=== PATIENT | male | born 1970 | race Caucasian/White ===

== ENCOUNTER → 2019-07-23 | Outpatient (CLI) | payer MEDICARE, SELFPAY | PROVIDERS: Family Provider Nurse Practitioner Family; Visit Provider Internal Medicine Medical Oncology | DX: D80.0 Hereditary hypogammaglobulinemia (principal); I50.9 Heart failure, unspecified; M19.90 Unspecified osteoarthritis, unspecified site; K21.9 Gastro-esophageal reflux disease without esophagitis; Z79.82 Long term (current) use of aspirin; Z86.79 Personal history of other diseases of the circulatory system; Z86.010 Personal history of colon polyps | CPT/HCPCS: 99214 ==

== ENCOUNTER → 2020-06-06 11:06 | Outpatient (BNVA) | payer MEDICARE, SELFPAY | PROVIDERS: Family Provider Nurse Practitioner Family; PCP Nurse Practitioner Family; Visit Provider Internal Medicine Cardiovascular Disease | DX: Z20.828 Contact with and (suspected) exposure to other viral communicable diseases (principal); Z01.818 Encounter for other preprocedural examination; Z95.0 Presence of cardiac pacemaker; Z95.818 Presence of other cardiac implants and grafts | CPT/HCPCS: 80048; 85025; 85610; 87635 ==

== ENCOUNTER → 2020-06-13 09:56 | Day surgery (SDC) | payer MEDICARE, SELFPAY ==
--- NOTE | 2020-06-12 09:10 | PC.NURSE ---
pat note anesthesia called to verify request for sedation during procedure. they agreed to be here at 1100 on 06/13/20
[2020-06-13 10:34] VITALS: BP 124/73; PULSE 64; RESP 17; TEMP 36.6; O2SAT 99; BMI 23.5
[2020-06-13] MEDS: cephALEXin 500 mg Capsule 2000 MG PO (11:11)
--- NOTE | 2020-06-13 11:22 | ANES.PREANE2 ---
Pre-Anesthetic Assessment Pre-Anesthetic Assessment: Height/Weight: Height 1.7 m Weight 68.039 kg Temp Pulse Resp BP Pulse Ox 97.9 F 64 17 124/73 99 06/13/20 10:34 06/13/20 10:34 06/13/20 10:34 06/13/20 10:34 06/13/20 10:34 Preop Diagnosis: retained Loop Recorder Proposed Procedure: recorder Operation Date: 06/13/20 11:30 Proposed Procedures p Loop Recorder Removal(Not Applicable) - Luis Petersen MD Last Intake: 00:00 Social: Social History: Alcohol and Tobacco Exam: Pre-Anes Outpt Exam: alert, oriented x 3, clear to auscultation bilaterally and regular rate & rhythm Airway: Submandibular: WNL Cervical ROM: WNL MP: 2 Dentition: False History/ROS: No significant history except as noted and No significant complaints Pulmonary: Pulmonary: None reported CV/HEM: CV/HEM: Arrythmia and HTN Comments: paroxismal AFib aand SVT Has pacemaker : : None reported Hepatic: Hepatic: None reported GI: GI: None reported Metabolic: Metabolic: None reported Comments: Immunodeficiency Musc/skel: Musc/skel: None reported Neuropsych: Neuropsych: None reported Anesthetic Plan: ASA status: 2 Anesthesia: Anesthesia Evaluation and MAC Other: MAC Risk of > 500 ml blood loss (7ml/kg in children): No PFSH Anesthesia PFSH: Medical History Atypical chest pain History of deviated nasal septum History of sleep disorder Hx of cardiac pacemaker Hx of chest pain Hx of colonic polyp Hx of hiatal hernia Intermittent atrial fibrillation Status post placement of implantable loop recorder TIA (transient ischemic attack) Surgical History History of inguinal hernia repair, bilateral History of tonsillectomy and adenoidectomy Hx of colonoscopy Hx of hand surgery Social History Smoking and tobacco status: current some day smoker Alcohol intake: current Alcohol intake frequency: few times a month Data Anesthesia Cardiac Studies: No Data to Display
--- NOTE | 2020-06-13 11:42 | W.PM.OPSUD ---
Surgery/Procedure H&P Update DATE OF PROCEDURE: June 13, 2020 DATE H&P PERFORMED: 05/21/20 H&P UPDATE INFORMATION: I have reviewed H&P completed within last 30 days, I have examined patient prior to procedure and No changes to prior documentation PREOP DIAGNOSIS: retained Loop Recorder PLANNED PROCEDURE: Operation Date: 06/13/20 11:30 Proposed Procedures p Loop Recorder Removal(Not Applicable) - Luis Petersen MD
--- NOTE | 2020-06-13 12:14 | P.OP_ITS ---
Operative Report Date of procedure: June 13, 2020 Pre-op Diagnosis: retained Loop Recorder Procedure: LOCATION: Cardiac Catheterization Laboratory REFERRING PROVIDER: [] PREOPERATIVE DIAGNOSIS: Recurrent syncope. POSTOPERATIVE DIAGNOSIS: same ESTIMATED BLOOD LOSS: None COMPLICATIONS: None. BRIEF HISTORY: This is a 49-year-old white [male] with a history of recurrent [syncope], had an ICM placement on more than 3 years ago in an outside facility. This patient had symptomatic bradycardia for which she underwent pacemaker insertion. Device has reached end-of-life. Patient has a history of IgG deficiency and problems with the local anesthesia. He initially decided to leave the ICM alone. Then he changed his mind and decided to have it explanted. PROCEDURE: The procedure was explained to the patient in detail with the risks and benefits. The patient understood this well and consented to proceed. The patient was brought to the Cardiac Management Trainer. The left side of the neck and the precordial region were cleaned and draped in a sterile fashion. 1% Xylocaine was used as local anesthetic agent. Patient was given [2 gm of Keflex] by mouth, half an hour prior to the procedure A 1/2 inch long incision was made at the previous implantation scar. By sharp and blunt dissection, the corporate associate pocket was accessed. The device was delivered from the pocket. Complete hemostasis was achieved. The pocket was copiously irrigated with vancomycin solution. Plate hemostasis was achieved . The pocket was closed in layers. The skin was approximated with 4-0 Vicryl EXPLANTED DEVICE: Reveal XT Model number: [id number] Serial number: [id number] Make: [employer] Pressure dressing was applied over the insertion site. The patient was transferred to the medical floor in stable condition.
--- NOTE | 2020-06-13 12:15 | PC.NURSE ---
pt recovery received pt from label stamper. pt has pressure dressing on left chest. no swelling, bruising, or bleeding apparent. pt sleepy from anaesthesia but aware of situation. pt complains of no pain. pt hooked up to monitor for vitals monitoring and will do so til discharge.
[2020-06-13 12:28] VITALS: BP 114/68; PULSE 74; RESP 20; O2SAT 96
[2020-06-13 12:45] VITALS: BP 105/69; PULSE 66; RESP 18; O2SAT 99
[2020-06-13 13:00] VITALS: BP 113/78; PULSE 60; RESP 17; O2SAT 99
[2020-06-13 13:15] VITALS: BP 107/76; PULSE 60; RESP 17; O2SAT 99
[2020-06-13 13:36] VITALS: BP 109/79; PULSE 60; RESP 16; O2SAT 99
== END | disposition home or self-care (01) ==
PROVIDERS: PCP Nurse Practitioner Family; Visit Provider Internal Medicine Cardiovascular Disease
PROC: (CPT 33286; principal; 2020-06-13 11:30)
DX: Z45.09 Encounter for adjustment and management of other cardiac device (principal)
CPT/HCPCS: 12345; 33286; 36415; C1769; J2704; J7030; J7050

== ENCOUNTER 2021-06-01 08:28 | Outpatient (CLI) | payer MEDICARE, SELFPAY ==
--- NOTE | 2021-06-01 08:38 | ECG_ITS ---
[facility] Test Date: 2021-06-01 Pat Name: Anish Rogers Department: Room: Gender: Male Epic Cupid Analyst: : 1970 Requested By: Luis Petersen Order Number: [id number] Abram MD: Luis Petersen M.D. Interpretive Statements NAME OF STUDY: EXERCISE SESTAMIBI STRESS TEST INDICATION: Chest Pain, PROCEDURE: The baseline electrocardiogram showed [normal sinus rhythm with early repolarization changes. At the baseline, the patient's blood pressure was 135/82 mm Hg with a heart rate of 68. The patient exercised for 11 minutes and 1 seconds on a standard [place] protocol. Patient attained a maximum heart rate of 163 beats per minute(95% of the maximum predicted heart rate) with a blood pressure at the peak exercise of 182/73 mm Hg. The EKG at the peak exercise revealed no significant changes. Patient did not have any chest pain or any significant arrhythmis with the exercise Sestamibi was injected 1 minute prior to the peak exercise During the recovery phase, there were no new changes. Blood pressure at the end of the recovery phase was 139/74 mm Hg with a heart rate of 100 per minute. CONCLUSION: 1. No significant EKG changes with the treadmill exercise 2. No exercise-induced chest pain or cardiac arrhythmia 3. Good exercise tolerance, attained a maximum of 13.5 METs 4. Sestamibi/Sestamibi perfusion results pending; see separate report. Electronically Signed On 06-01-2021 19:57:32 PEA VINER MECHANIC by Luis Petersen M.D. [email or web address]
--- NOTE | 2021-06-01 08:38 | NMCV_ITS ---
NM eliana perf SPECT r/s* [id number] Anish Rogers Age: 50 Gender: M : 1970 Exam Date: 06/01/2021 08:38 Ordering Phys: Luis Petersen MD ([email or web address]) Technologist: CHAPARRO Rossi Exam Location: [facility] Indications: CHEST PAIN STRESS TEST Please see separate stress test report in [facility] for full findings IMAGE PROTOCOL Rest/Stress 1 Exercise Day Radiopharmaceutical Dose (mCi) Administration Site Administered by Rest: Tc-99m 10.5 IV CHAPARRO Rossi Sestamibi Stress:Tc-99m 32.7 IV CHAPARRO Dsouza Sestamibi Rest: 01-Jun-2021 60 Discovery 630 Stress: 01-Jun-2021 30 Discovery 630 Radiopharmaceutical was injected at 85 % maximum heart rate. Images obtained in supine and prone position. SPECT RESULTS Technical Quality: Excellent Raw Data Analysis: Normal Image Corrections: No attenuation or motion correction applied Summed Stress Score: 0 Summed Rest Score: 0 Summed Difference Score: 0 PERFUSION FINDINGS Fairly uniform myocardial tracer uptake. No significant perfusion abnormalities FUNCTIONAL RESULTS (calculated via Gated SPECT) Stress Image LV EF (%): 58 Stress EDV (mL):100 TID: 0.9 Stress ESV (mL):42 FUNCTIONAL FINDINGS: Segmental wall motion analysis revealing no gross wall motion abnormalities IMPRESSIONS 1. Myocardial perfusion imaging revealing fairly uniform myocardial tracer uptake with no significant perfusion abnormalities 2. Normal LV ejection fraction 58%. 3. LV wall motion analysis revealing no gross wall motion normalities. 4. Normal LV volume. No significant coronary ischemia, based on the above findings Dr Luis Petersen MD FACC (Electronically Signed) Final Date: 02 June 2021 07:24 S
--- NOTE | 2021-06-01 08:53 | PC.NURSE ---
Labs drawn and sent to lab per Dr. Quesada's orders.
[2021-06-01 08:54] VITALS: BMI 22.1
[2021-06-01 10:34] LABS: Basophils # 0.1 10^3/uL (0.0-0.1); Basophils % 0.8 %; Eosinophils # 0.2 10^3/uL (0.0-0.8); Eosinophils % 2.8 %; Hematocrit 45.3 % (42.0-52.0); Hemoglobin 15.5 g/dL (11.7-16.6); Lymphocytes # 2.2 10^3/uL (0.8-4.8); Lymphocytes % 29.5 %; Mean Corpuscular HGB Conc 34.2 g/dL (30.0-36.0); Mean Corpuscular Hemoglobin 31.8 pg (28.0-34.0); Mean Platelet Volume 11.6 fL (7.4-10.4); Monocytes # 0.7 10^3/uL (0.2-0.9); Monocytes % 9.4 %; Neutrophils # 4.32 10^3/uL (1.8-7.7); Neutrophils % 57.1 %; Nucleated Red Blood Cells % 0 %; Platelet Count 186 10^3/cmm (130-400); Red Blood Count 4.87 10^6/uL (4.1-5.3); Red Cell Distribution Width 12.2 % (12.1-15.1); White Blood Count 7.6 10^3/uL (4.0-10.0)
[2021-06-01 10:52] LABS: Alanine Aminotransferase 25 U/L (0-41); Alkaline Phosphatase 61 IU/L (40-130); Anion Gap 12.1 (5-19); Aspartate Amino Transferase 19 U/L (0-40); Blood Urea Nitrogen 9 mg/dL (6-20); Calcium 8.9 mg/dL (8.5-10.5); Carbon Dioxide 25 mmol/L (22-29); Chloride 105 mmol/L (98-107); Globulin 2.4 g/dL (1.3-4.6); Glomerular Filtration Rate 143.8 mL/min (90-130); Glucose 85 mg/dL (65-115); Immunoglobulin IGA 85 mg/dL (70-400); Immunoglobulin IGG 698 mg/dL (700-1600); Immunoglobulin IGM 111 mg/dL (40-230); Osmolality Calculated 284 mOsm/kg (285-295); Potassium 4.1 mmol/L (3.5-5.1); Sodium 138 mmol/L (136-145); Total Bilirubin 0.3 mg/dL (0.15-1.2); Total Protein 6.4 g/dL (6.6-8.7)
[2021-06-01 11:53] VITALS: BP 169/74; PULSE 99
== END 2021-06-01 08:29 | disposition home or self-care (01) ==
LOC: RAD 08:31 → CDL 08:38
PROVIDERS: Internal Medicine Medical Oncology; PCP Nurse Practitioner Family; Visit Provider Internal Medicine Cardiovascular Disease
DX: R07.9 Chest pain, unspecified (principal)
CPT/HCPCS: 78452; 80053; 82784; 85025; 93017; A9500

== ENCOUNTER 2021-06-01 12:37 | Outpatient (CLI) | payer MEDICARE, SELFPAY ==
--- NOTE | 2021-06-01 19:15 | ONC FU_ITS ---
Dr. Quesada Patient Follow-Up Note Patient: Anish Rogers Unit #: [id number]: 1970 Dicatated By: Butch Quesada M.D.Date of Visit:Jun 01, 2021 Onc Med Follow-up/Prog Note Chief Complaint: Hypogammaglobulinemia. 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 He had a history of lifelong infections and in 2010 he was determined to have hypogammaglobulinemia. It was apparently discovered in association with an episode of meningitis. Given his history, the hypogammaglobulinemia was presumed to have been congenital. He moved to this area in January 2018. He had been on long-term replacement IVIG. It was initially administered every 6 weeks, later increased to every 4 weeks and then to every 3 weeks. I had seen him initially on 07/04/2018. His CBC that time showed normal hemoglobin of 15.7 g with white blood cell count 7600 and platelet count 187,000. His comprehensive metabolic profile was unremarkable. LDH was normal at 176 U/L. Protein electrophoresis showed a normal pattern. His quantitative immunoglobulin levels were in normal range with IgG 762 mg/dL, IgA 132 mg/dL, and IgM 133 mg/dL. He was given the option to continue a trial period off of his replacement IVIG, but he preferred to continue the treatment every 3 weeks. It was administered as an outpatient at [facility] in [place]. He has additional history of cardiac arrhythmia, for which he underwent placement of permanent pacemaker in 2016. He also reports having had congestive heart failure. He has followed with Dr. Petersen for his cardiology care. He also has degenerative arthritis. He has a history of colonic polyps, and he apparently has had GERD. He has a history of smoking, but only about a pack of cigarettes every 3 days. I had last seen him for a follow-up visit in June 2019. At that point he indicated that he had experienced an allergic type reaction to the IVIG on one occasion, but it had been adequately managed with Benadryl. He had multiple complaints, which included some weight loss. He continued his replacement IVIG at the same dosage and schedule. He failed to return for follow-up. I had recently received a call from the [facility], as he had again experienced a significant allergic type reaction to his IVIG. He says that the reaction started when he was about 10 to 15 minutes into the infusion. His symptoms included nausea, dizziness, and chest pain. It was able to be managed adequately with medication, he was discharged home. He is seen now for a follow-up visit. He has not been feeling good generally. He says his energy is on and off. ECOG score is 1. His appetite is down, and he has early satiety. He has had a further 10 pound weight loss since his visit in June 2019. He does not have fever, but he does report having bad sweating every night. He has sinus congestion and he also complains of having sore mouth and sore throat. His breathing has been pretty good. He has just a little cough. He has nausea and he has a little bit of acid reflux. He has been having pain in his upper abdominal area. Recently he has been having red blood in the stool 2-3 times a day. He has a history of colonic polyps. He occasionally has burning with urination. He has fairly generalized joint pain, clean the hands, knees, and ankles. He also has back pain. He does not complain of headache. He sometimes has dizziness. He has numbness in his hands quite often and occasionally in his feet. He has been having quite a bit of stress. Medications: Aspirin 1 Tablet (of 81 mg) Oral daily, Magnesium 1 Tablet (of 250 mg) Oral daily, Metoprolol Tartrate 1 Tablet (of 25 mg) Oral b.i.d., Nitroglycerin Tablet, sublingual Sublingual PRN Allergies: Ibuprofen and Prevpac. Vital Signs: Performed on Jun 01, 2021 13:05 Height - 67.00 in Weight - 142.9 lbs (LOW) BSA - 1.75 sq.m BMI - 22.38 Temperature - 98.0 F (LOW) Pulse - 83 /min Respiration - 18 /min BP - 108/70 mm(hg) O2 Sat - 96 % Pain - 2 Fatigue - 0 Physical Examination: Constitutional - He looks pretty good generally, Eyes - Sclerae nonicteric. Conjunctivae clear, ENMT - No lesions noted in the oral cavity, Hematologic/Lymphatic - No cervical, clavicular, or axillary adenopathy, Respiratory - Lungs sound clear with diminished air movement bilaterally, Cardiovascular - Heart rhythm is regular. There is no murmur, gallop, or rub noted, Abdomen - Soft. Liver and spleen are not enlarged. There is no abdominal mass or ascites noted and there is no inguinal adenopathy, Extremities - No edema, Neurologic - No focal neurologic deficits noted. Lab/Imaging: CBC shows hemoglobin of 15.5 g, white blood cell count 7600, and platelet count 186,000. Comprehensive metabolic profile shows normal renal function with BUN 9 and creatinine 0.6 mg/dL. Bilirubin and liver enzymes are normal. His quantitative immunoglobulin levels include slightly low IgG at 698 mg/dL, IgA in the low normal range at 85 mg/dL, and IgM in the normal range at 111 mg/dL. Problem List: 1. Hypogammaglobulinemia, presumed congenital. Historically he had been prone to recurrent infections, but he had responded well to replacement IVIG. 2. History of cardiac arrhythmia. 3. He reportedly has had congestive heart failure. 4. Degenerative arthritis. 5. History of colonic polyps. 6. GERD. 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 Historically he had been prone to recurrent infections, but he had responded well to replacement IVIG. Following his initial visit here in June 2018 he continued his IVIG infusions. He had mostly tolerated it well, but recently he has had his second episode of a hypersensitivity type reaction. In addition, during his follow-up there has been some decline in his performance status, and he has had significant weight loss, now in the range of 20 pounds. The cause is uncertain. I do have concerns about the possibility of underlying malignancy, as he has not had any overt illnesses of bacterial infection with the replacement IVIG. As such, he will be scheduled for CT scans of the chest, abdomen, and pelvis. He will have further evaluation as indicated. At a minimum, he will need additional GI evaluation for the rectal bleeding. In the meantime, I am going to look into the possibility of changing his replacement IVIG to home subcutaneous infusion, which should have a lower risk of hypersensitivity reaction. Signed By: Butch Quesada M.D. <<Signature on File>>
[2021-06-01 22:40] LABS: C Reactive Protein 0.5 mg/L (0.0-4.9)
== END 2021-06-01 12:38 | disposition home or self-care (01) ==
LOC: ONCMED 12:39
PROVIDERS: PCP Nurse Practitioner Family; Visit Provider Internal Medicine Medical Oncology
DX: D80.0 Hereditary hypogammaglobulinemia (principal); I49.9 Cardiac arrhythmia, unspecified; I50.9 Heart failure, unspecified; M19.90 Unspecified osteoarthritis, unspecified site; K21.9 Gastro-esophageal reflux disease without esophagitis; Z86.010 Personal history of colon polyps; Z79.899 Other long term (current) drug therapy
CPT/HCPCS: 86140; 99214

== ENCOUNTER 2021-06-10 12:51 | Outpatient (CLI) | payer MEDICARE, SELFPAY ==
--- NOTE | 2021-06-10 | CT_ITS ---
WS: [id number] CT CHEST, ABDOMEN AND PELVIS WITH CONTRAST. HISTORY: HEREDITARY HYPOGAMMAGLOBULINEMIA TECHNIQUE: Contiguous 5 mm axial imaging performed through the chest, abdomen and pelvis with IV cont rast, oral contrast has been provided. Coronal and sagittal reformats chest. Coronal and sagittal ref ormats through the abdomen and pelvis. All CT scans at [facility] use at least one of these d ose optimization techniques: automated exposure control; mA and/or kV adjustment per patient size (in cludes targeted exams where dose is matched to clinical indication); or iterative reconstruction. CONTRAST: Omnipaque 300; 95 mL IV. DLP: 1812.88 mGycm COMPARISON: 07/12/[address]: Lungs are clear. No pneumonia or nodules. Normal size heart. No pericardial or pleural effu sions. No mediastinal or hilar adenopathy. Dual lead LEFT subclavian pacer is present. Small hiatal h ernia. Normal size aorta. Normal pulmonary artery. Abdomen CT: Normal liver. Normal portal vein. Normal gallbladder and pancreas and spleen. No adrenal mass. Both kidneys are enhancing normally with no obstruction. Mild atherosclerosis aorta. No ascites or adenopathy. Moderate fecal retention in the RIGHT colon. No GI tract obstruction. The appendix is normal. Pelvic CT: No free fluid in the pelvis. Urinary bladder is well distended. No osteoblastic or osteolytic bone disease. Mild LEFT curvature lower lumbar spine. CT/CT chest abd pel w con* IMPRESSION: 1. No acute chest, abdomen or pelvic abnormalities. 2. Normal size spleen. 3. No adenopathy.
[2021-06-10] MEDS: iohexol 300 mg/mL 100 mL Btl IV (14:36)
[2021-06-10] MEDS: iohexol 300 mg/mL 50 mL Btl PO (14:38)
== END 2021-06-10 12:52 | disposition home or self-care (01) ==
PROVIDERS: PCP Nurse Practitioner Family; Visit Provider Internal Medicine Medical Oncology
DX: D80.0 Hereditary hypogammaglobulinemia (principal)
CPT/HCPCS: 71260; 74177; Q9967

== ENCOUNTER → 2022-04-30 10:11 | Outpatient (BNVA) | payer MEDICARE, SELFPAY | PROVIDERS: PCP Nurse Practitioner Family; Visit Provider Internal Medicine | DX: Z45.010 Encounter for checking and testing of cardiac pacemaker pulse generator [battery] (principal) | CPT/HCPCS: 93280 ==

== ENCOUNTER → 2022-05-24 10:39 | Outpatient (BNVA) | payer MEDICARE, SELFPAY | PROVIDERS: PCP Nurse Practitioner Family; Visit Provider Internal Medicine Cardiovascular Disease | DX: R07.89 Other chest pain (principal); Z95.0 Presence of cardiac pacemaker; Z86.73 Personal history of transient ischemic attack (TIA), and cerebral infarction without residual deficits; F17.200 Nicotine dependence, unspecified, uncomplicated; I25.2 Old myocardial infarction; I48.91 Unspecified atrial fibrillation | CPT/HCPCS: 99213 ==

== ENCOUNTER 2022-06-24 12:28 | Oncology outpatient (recurring) (ONCR) | payer MEDICARE, SELFPAY ==
[2022-06-24 12:48] LABS: Basophils # 0.1 10^3/uL (0.0-0.1); Basophils % 0.6 %; Eosinophils # 0.2 10^3/uL (0.0-0.8); Eosinophils % 2.9 %; Hematocrit 48.3 % (42.0-52.0); Hemoglobin 16.2 g/dL (11.7-16.6); Lymphocytes # 2.9 10^3/uL (0.8-4.8); Lymphocytes % 34.3 %; Mean Corpuscular HGB Conc 33.5 g/dL (30.0-36.0); Mean Corpuscular Hemoglobin 30.9 pg (28.0-34.0); Mean Corpuscular Volume 92.2 fl (80-94); Monocytes # 0.6 10^3/uL (0.2-0.9); Monocytes % 7.4 %; Neutrophils # 4.54 10^3/uL (1.8-7.7); Neutrophils % 54.4 %; Nucleated Red Blood Cells % 0 %; Platelet Count 193 10^3/cmm (130-400); Red Blood Count 5.24 10^6/uL (4.1-5.3); Red Cell Distribution Width 11.1 % (12.1-15.1); White Blood Count 8.3 10^3/uL (4.0-10.0)
[2022-06-24 13:08] LABS: Alanine Aminotransferase 20 U/L (0-41); Albumin Level 4.3 g/dL (3.5-5.2); Alkaline Phosphatase 82 U/L (40-130); Aspartate Amino Transferase 17 U/L (0-40); Blood Urea Nitrogen 11 mg/dL (6-20); Calcium 9.4 mg/dL (8.5-10.5); Carbon Dioxide 26 mmol/L (22-29); Chloride 103 mmol/L (98-107); Globulin 2.4 g/dL (1.3-4.6); Glomerular Filtration Rate 89.7 mL/min (90-130); Glucose 85 mg/dL (65-115); Immunoglobulin IGA 124 mg/dL (70-400); Immunoglobulin IGG 743 mg/dL (700-1600); Immunoglobulin IGM 157 mg/dL (40-230); Osmolality Calculated 285 mOsm/kg (285-295); Sodium 138 mmol/L (136-145); Total Bilirubin 0.4 mg/dL (0.15-1.2); Total Protein 6.7 g/dL (6.6-8.7)
== END 2022-07-24 23:59 | disposition home or self-care (01) ==
PROVIDERS: Visit Provider Internal Medicine Medical Oncology
DX: D80.1 Nonfamilial hypogammaglobulinemia (principal)
CPT/HCPCS: 36415; 80053; 82784; 85025

== ENCOUNTER 2023-01-19 10:30 | Oncology outpatient (recurring) (ONCR) | payer MEDICARE, SELFPAY ==
[2023-01-14 11:09] VITALS: BP 123/76; PULSE 80; RESP 18; TEMP 36.6; O2SAT 100
[2023-01-14 11:39] LABS: Immunoglobulin IGA 98 mg/dL (70-400); Immunoglobulin IGG 631 mg/dL (700-1600); Immunoglobulin IGM 162 mg/dL (40-230)
[2023-01-19 10:43] VITALS: BP 135/94; PULSE 87; RESP 18; TEMP 37.2; O2SAT 99
[2023-01-19 11:18] LABS: Basophils # 0.1 10^3/uL (0.0-0.1); Basophils % 0.9 %; Eosinophils # 0.3 10^3/uL (0.0-0.8); Eosinophils % 3.8 %; Hematocrit 41.4 % (42.0-52.0); Hemoglobin 13.3 g/dL (11.7-16.6); Lymphocytes # 2.6 10^3/uL (0.8-4.8); Lymphocytes % 28.3 %; Mean Corpuscular HGB Conc 32.1 g/dL (30.0-36.0); Mean Corpuscular Hemoglobin 30.7 pg (28.0-34.0); Mean Corpuscular Volume 95.6 fl (80-94); Mean Platelet Volume 10.5 fL (7.4-10.4); Monocytes # 0.5 10^3/uL (0.2-0.9); Monocytes % 5.3 %; Neutrophils # 5.55 10^3/uL (1.8-7.7); Neutrophils % 61.1 %; Nucleated Red Blood Cells % 0 %; Platelet Count 229 10^3/cmm (130-400); Red Blood Count 4.33 10^6/uL (4.1-5.3); Red Cell Distribution Width 11.7 % (12.1-15.1); White Blood Count 9.1 10^3/uL (4.0-10.0)
[2023-01-19 11:19] LABS: Reticulocyte % 1.1 % (0.5-2.0)
[2023-01-19 11:34] LABS: Alanine Aminotransferase 11 U/L (0-41); Alkaline Phosphatase 112 U/L (40-130); Aspartate Amino Transferase 14 U/L (0-40); Blood Urea Nitrogen 13 mg/dL (6-20); Calcium 8.7 mg/dL (8.5-10.5); Carbon Dioxide 25 mmol/L (22-29); Chloride 108 mmol/L (98-107); Erythrocyte Sedimentation Rate 5 mm/hr (0-10); Ferritin 56 ng/mL (30-400); Globulin 2.1 g/dL (1.3-4.6); Glomerular Filtration Rate 119.4 mL/min (90-130); Glucose 82 mg/dL (65-115); Iron 62 ug/dL (59-158); Osmolality Calculated 287 mOsm/kg (285-295); Percent Saturation 20.3 % (20-50); Sodium 139 mmol/L (136-145); Total Bilirubin 0.2 mg/dL (0.15-1.2); Total Iron Binding Capacity 305 mcg/dl; Total Protein 6.1 g/dL (6.6-8.7); Unsaturated Iron Binding 243 ug/dL (112-347)
[2023-01-19 11:42] LABS: Anion Gap 10.6 (5-19); Lactate Dehydrogenase 193 U/L (135-225); Potassium 4.6 mmol/L (3.5-5.1)
[2023-01-19 11:48] LABS: Vitamin B12 354 pg/mL (232-1245)
[2023-01-19 11:56] LABS: Folate Level 6.1 ng/mL (4.5-32.2)
[2023-01-19 12:17] LABS: LAB Peripheral Smear Sent for Review
== END 2023-01-21 23:59 | disposition home or self-care (01) ==
PROVIDERS: Internal Medicine Medical Oncology; Visit Provider Internal Medicine Medical Oncology
DX: D80.1 Nonfamilial hypogammaglobulinemia (principal); R91.1 Solitary pulmonary nodule; F17.210 Nicotine dependence, cigarettes, uncomplicated; Z79.899 Other long term (current) drug therapy; D64.9 Anemia, unspecified
CPT/HCPCS: 36592; 80053; 82607; 82728; 82746; 82784; 83010; 83540; 83550; 83615; 85025; 85045; 85651; 86140; 99214; J1642